=== PATIENT | female | born 1975 | race Two or more races ===

== ENCOUNTER 2021-07-16 18:03 | Emergency (ER) | payer OTHER ==
[~2021-07-16] VITALS: Ht 157.5 cm; Wt 66.4 kg
[2021-07-16 18:25] VITALS: BP 146/54
== END 2021-07-16 20:30 | disposition left against medical advice (07) ==
LOC: EMS 18:07
DX: Z53.21 Procedure and treatment not carried out due to patient leaving prior to being seen by health care provider (principal)